=== PATIENT | male | born 1985 | race Caucasian/White ===

== ENCOUNTER 2017-05-28 17:31 | Emergency (ER) | payer BC ==
[2017-05-28 17:42] VITALS: BP 130/104; O2SAT 98
[2017-05-28] MEDS ORDERED: Adacel Vial IM ONE ×2 (18:00→18:08)
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
== END 2017-05-28 18:45 | disposition home or self-care (01) ==
LOC: ED 17:31
DX: S60.222A Contusion of left hand, initial encounter (principal); S60.512A Abrasion of left hand, initial encounter; V89.2XXA Person injured in unspecified motor-vehicle accident, traffic, initial encounter
CPT/HCPCS: 73130; 90471; 90715; 96372; 99284